=== PATIENT | female | born 1980 | race African-American/Black ===

== ENCOUNTER 2021-08-07 04:46 | Emergency (ER) | payer OTHER, MEDICAID ==
[~2021-08-07] VITALS: Ht 175.3 cm; Wt 122.5 kg
[2021-08-07 04:46] VITALS: BP_SYST 193
--- NOTE | 2021-08-07 04:46 | NUR ---
Patient brought in by ambulance to bed 6 for evaluation and treatment
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
[2021-08-07 06:13] LABS: BASOPHILS % (AUTO) 0.2 % (0.0-2.0); EOSINOPHILS % (AUTO) 0.4 % (0.0-4.0); HEMATOCRIT 35.4 % (36-48); HEMOGLOBIN 11.4 g/dL (12.0-16.0); LYMPHOCYTES # (AUTO) 1.1 K/uL (1.0-5.5); LYMPHOCYTES % (AUTO) 9.5 % (20.5-51.5); MEAN CORPUSCULAR HEMOGLOBIN 30 pg (27-31); MEAN CORPUSCULAR HGB CONC 32 % (32-36); MEAN CORPUSCULAR VOLUME 94 fL (79.0-98.0); MONOCYTES % (AUTO) 8.9 % (1.7-9.3); PLATELET COUNT (AUTO) 253 K/uL (130-430); RED BLOOD CELL COUNT(AUTO) 3.77 MIL/uL (4.2-6.2); RED CELL DISTRIBUTION WIDTH 13.1 % (9.0-15.0); WHITE BLOOD COUNT (AUTO) 11.2 K/uL (4.8-10.8)
[2021-08-07] MEDS: ONDANSETRON 4 MG ODT TAB PO ONE (06:15)
[2021-08-07] MEDS: HYDROcodone/ACETAMIN 10-325 MG TAB PO ONE (06:15)
[2021-08-07 06:28] LABS: CREATININE 2.61 mg/dL (0.55-1.30); POTASSIUM 4.1 mmol/L (3.5-5.1)
--- NOTE | 2021-08-07 06:30 | NUR ---
Pt taken to CT for imaging.
[2021-08-07 06:34] LABS: ALBUMIN 3.4 g/dL (3.4-4.8); TOTAL BILIRUBIN 0.3 mg/dL (0.0-1.0)
--- NOTE | 2021-08-07 07:11 | NUR ---
Report/care endorsed to Sarthak.
[2021-08-07] MEDS ORDERED: ACET-2634 PO (07:28)
[2021-08-07 07:40] VITALS: BP_SYST 165
--- NOTE | 2021-08-07 07:44 | NUR ---
a/ox4 vss verbalized understanding of dc instructions, all questions answered.
--- NOTE | 2021-08-07 07:47 | NUR ---
Patient given written and verbal discharge instructions and verbalizes understanding. ER MD discussed with patient the results and treatment provided. Patient in stable condition. ID arm band removed. IV catheter removed intact and dressing applied, no active bleeding. Rx of given. Patient educated on pain management and to follow up with PMD. Pain Scale . Opportunity for questions provided and answered. Medication side effect fact sheet provided.
== END 2021-08-07 07:46 | disposition home or self-care (01) ==
LOC: SED 04:46
DX: S09.90XA Unspecified injury of head, initial encounter (principal); I10 Essential (primary) hypertension; E11.9 Type 2 diabetes mellitus without complications; Z79.899 Other long term (current) drug therapy; V49.59XA Passenger injured in collision with other motor vehicles in traffic accident, initial encounter; Y93.89 Activity, other specified; Y92.89 Other specified places as the place of occurrence of the external cause; Y99.8 Other external cause status
CPT/HCPCS: 36415; 70450; 70486; 76376; 80053; 84703; 85025; 99284; Q0162

== ENCOUNTER 2021-08-11 22:51 | Emergency (ER) | payer OTHER, MEDICAID ==
[~2021-08-11] VITALS: Ht 175.3 cm; Wt 122.5 kg
[~2021-08-11 22:51] MED LIST: ACET-2634 PO
[2021-08-11 23:02] VITALS: BP_SYST 170
--- NOTE | 2021-08-11 23:07 | NUR ---
Patient to ER bed 03 to gown for evaluation. Side rails up. Report given to SUN Kapadia
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
--- NOTE | 2021-08-12 | NUR ---
ER at bedside examining patient.
--- NOTE | 2021-08-12 00:10 | NUR ---
[facility]ila fung in [facility] - 08/12/21 at 0051 by [email or web address] MIRNA Bright at bedside examining patient.
[2021-08-12] MEDS ORDERED: DIAZEPAM 5 MG TABLET (VALIUM) PO ONE (00:15)
[2021-08-12] MEDS ORDERED: MORPHINE 4 MG INJ. 4 MG/ML VIAL IM ONE (00:15)
--- NOTE | 2021-08-12 00:51 | NUR ---
Unable to provide urine sample at this time. Fluids provided to pt.
--- NOTE | 2021-08-12 01:30 | NUR ---
UA COLLECTED AND SENT TO LAB.
[2021-08-12 02:25] LABS: BILIRUBIN,URINE NEGATIVE (NEGATIVE); BLOOD, URINE NEGATIVE (NEGATIVE); CLARITY/URINE CLEAR (CLEAR); COLOR,URINE YELLOW (YELLOW); GLUCOSE,URINE NEGATIVE (NEGATIVE); KETONES,URINE NEGATIVE (NEGATIVE); LEUKOCYTE ESTERASE ,URINE NEGATIVE (NEGATIVE); NITRITE, URINE NEGATIVE (NEGATIVE); PROTEIN URINE 3+ (NEGATIVE); UROBILINOGEN,URINE 0.2 (0.2-1.0)
[2021-08-12 02:53] LABS: RBC,URINE 0-3 /HPF (0-3)
[2021-08-12 02:54] LABS: BACTERIA,URINE FEW /HPF (None Seen); HYALINE CASTS, URINE 0-10 /LPF (None Seen); WBC,URINE 0-3 /HPF (0-3)
[2021-08-12] MEDS ORDERED: HYDROcodone/ACETAMIN 10-325 MG TAB PO ONE (03:15)
[2021-08-12 03:23] LABS: HCG,QUAL RESULT NEGATIVE (NEGATIVE)
[2021-08-12 03:50] VITALS: BP_SYST 156
--- NOTE | 2021-08-12 03:51 | NUR ---
Patient given written and verbal discharge instructions and verbalizes understanding. ER MD Bright discussed with patient the results and treatment provided. Patient in stable condition. ID arm band removed. Patient educated on pain management and to follow up with PMD. Pain Scale 4/10 Opportunity for questions provided and answered.
== END 2021-08-12 03:51 | disposition home or self-care (01) ==
LOC: SED 22:51
DX: R10.9 Unspecified abdominal pain (principal)
CPT/HCPCS: 81000; 81003; 84703; 96372; 99283; J2270